=== PATIENT | male | born 1950 | race Caucasian/White ===

== ENCOUNTER 2017-09-07 00:32 | Emergency (ER) | payer MEDICARE ==
[~2017-09-07] VITALS: Ht 182.9 cm; Wt 90.7 kg
[2017-09-07] MEDS ORDERED: SODIUM BICARBONATE 8.4% INJ 50ML SYRINGE IV ONE (00:33)
[2017-09-07] MEDS ORDERED: phytonadione 1 ML ONE (00:33)
[2017-09-07] MEDS ORDERED: EPINEPHrine HCL 1 MG/10 ML SYRG IV ONE (00:33)
[2017-09-07] MEDS ORDERED: CALCIUM CHLOR(10%) 100MG/ML 10ML SYRINGE IV ONE (00:33)
== END 2017-09-07 00:43 | disposition expired ==
LOC: EDBD 00:32 → ER 00:32
DX: I46.9 Cardiac arrest, cause unspecified (principal)
CPT/HCPCS: 82962; 92950; 99285; J0171; J3430